=== PATIENT | male | born 1980 | race Caucasian/White ===

== ENCOUNTER 2018-12-05 12:35 | Emergency (ER) | payer SELFPAY ==
--- NOTE | 2018-12-05 12:56 | RAD ---
EXAM: 3 views of the right hand COMPARISON: 12/04/2018 HISTORY: Hand pain FINDINGS: 3 views of the right hand shows a fracture of the fifth metacarpal neck with overlying soft tissue swelling. This has not changed compared to the radiograph from yesterday. IMPRESSION: Stable fifth metacarpal neck fracture.
== END 2018-12-05 14:15 | disposition home or self-care (01) ==
LOC: ERS 12:35
DX: S62.336A Displaced fracture of neck of fifth metacarpal bone, right hand, initial encounter for closed fracture (principal); Z87.891 Personal history of nicotine dependence; W22.01XA Walked into wall, initial encounter